=== PATIENT | female | born 1960 | race Caucasian/White ===

== ENCOUNTER → 2017-04-22 | Outpatient (CLI) | payer BC ==
--- NOTE | ~2017-04-22 | MY11 ---
[facility] A Service of [facility] RADIOLOGY TEXT RESULTS PATIENT: COLEEN COOK LOCATION: [facility] : 64 UNIT #: [id number] AGE: [address]: Hazel Thomson MD SEX: F ORDER DR: [id number] [address] [address] [id number] O MR#: [id number] Acc #: [id number] NAME: COLEEN COOK : 1960 SEX: F STUDY DATE/TIME: 04/22/2017 10:25 UNIT: [facility] ROOM: STUDY DESCRIPTION: MY Mammogram Screening Dig Zane Attending Physician: Hazel Thomson M.D. Referring Physician: Hazel Thomson M.D. Ordering Physician: Hazel Thomson M.D. Primary Care Physician: Hazel Thomson M.D. MEDICAL IMAGING REPORT This report is preliminary unless electronic signature is present. EXAM Digital screening mammogram 04/22/2017 [facility] HISTORY 56-year-old woman no risk elevation. Annual screen. COMPARISON 02/13/2007, 10/31/2015 FINDINGS Digital imaging of each breast was completed utilizing standard craniocaudal and mediolateral-oblique projections. Review and interpretation of digital mammograms include a second review in conjunction with FDA-approved CAD device. There is an overall increase in the parenchymal presentation bilaterally with a generalized fibronodular pattern in each breast. There are no breast masses and I see no asymmetry in the parenchymal presentation. There are no suspicious microcalcifications and I see no architectural disturbance. IMPRESSION Benign mammogram. One-year followup recommended. Patients over the age of 40 are entered into a reminder system with target due date for the next mammogram. A result letter will also be sent to the patient. BIRADS: 2 Benign finding Dictated by... Levi Jamison M.D. [facility] A Service of [facility] RADIOLOGY TEXT RESULTS PATIENT: COLEEN COOK LOCATION: [facility] : 64 UNIT #: [id number] AGE: [address]: Hazel Thomson MD SEX: F ORDER DR: THIS IS AN ELECTRONICALLY VERIFIED REPORT Levi Jamison M.D. at 04/22/2017 3:31 PM JBB/to TD: 04/22/2017 14:34 JOB #: [id number] MEDICAL IMAGING REPORT Page 1 of 1
== END | disposition home or self-care (01) ==
LOC: SMAM 09:46
DX: Z12.31 Encounter for screening mammogram for malignant neoplasm of breast (principal)
CPT/HCPCS: G0202